=== PATIENT | female | born 1965 | race Caucasian/White ===

== ENCOUNTER 2017-08-21 13:29 | Emergency (ER) | payer BC ==
[~2017-08-21] VITALS: Ht 165.1 cm; Wt 99.0 kg
[2017-08-21 15:07] VITALS: BP 144/73
[2017-08-21] MEDS ORDERED: TETANUS AND DIPHTHERIA TOX/PF 0.5ML SYR (ADULT) IM ONE (16:15)
[2017-08-21] MEDS ORDERED: TETANUS, DIPHTHERIA, PERTUSSIS VAC/PF 0.5ML (>7YR OLD) IM ONE (16:45)
== END 2017-08-21 17:05 | disposition home or self-care (01) ==
LOC: ER 13:39
DX: S01.01XA Laceration without foreign body of scalp, initial encounter (principal); W01.198A Fall on same level from slipping, tripping and stumbling with subsequent striking against other object, initial encounter; Y93.E2 Activity, laundry; Y92.89 Other specified places as the place of occurrence of the external cause; R03.0 Elevated blood-pressure reading, without diagnosis of hypertension; Z23 Encounter for immunization
CPT/HCPCS: 81025; 90471; 90714; 90715; 99283